=== PATIENT | female | born 1970 ===

== ENCOUNTER 2018-10-22 09:36 | Outpatient (CLI) | payer OTHER ==
[~2018-10-22] VITALS: Ht 157.5 cm; Wt 81.6 kg
== END 2018-10-22 10:00 | disposition home or self-care (01) ==
LOC: OFIC 805 09:36
DX: H93.13 Tinnitus, bilateral (principal)

== ENCOUNTER 2022-06-23 10:15 | Outpatient (CLI) | payer OTHER | END 2022-06-23 10:17 | disposition home or self-care (01) | LOC: SONOGRAMA 10:15 | PROVIDERS: ATTEND Pathology Anatomic Pathology & Clinical Pathology | DX: D11.0 Benign neoplasm of parotid gland (principal); R59.0 Localized enlarged lymph nodes ==